=== PATIENT | female | born 1985 | race Two or more races ===

== ENCOUNTER 2016-11-05 11:31 | Emergency (ER) | payer OTHER ==
[2016-11-05 11:37] VITALS: TEMP 97.8; BMI 25.9
[2016-11-05] MEDS ORDERED: morphine CARPU-JECT 4 MG/1 ML DISP.SYRIN IVPUSH ONE (12:31)
--- NOTE | 2016-11-05 12:31 | PDOC ---
History of Present Illness - General History Source: Patient Exam Limitations: No Limitations - History of Present Illness Initial Comments: 11/05/16 12:32 The patient is a 30 year old female, with no significant past medical history and who is bulgarian speaking who was BIBA and presents to the emergency department with abdominal pain since 5am today. She reports waking up with acute sudden onset of pain. She describes the pain as a pressure, that she reports is constant but intermittent. She ranks her pain a 8/10 in pain intensity. She reports having mild nausea. She denies having this pain in the past. Patient reports having a recent last month, and is currently breast feeding. She reports having an infection at one of the suture sites, but that is not where her pain is coming from. She denies recent fevers, chills, headache or dizziness. She denies recent vomit, diarrhea or constipation. She denies recent dysuria, frequency, urgency or hematuria. 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 Allergies: NKA Past surgical history: (10/04/16) Social history: Nonsmoker. Denies EtOH use and drug use. PCP: <Enrico Mckenzie - Last Filed: 11/05/16 12:32> - General History Source: Patient Exam Limitations: No Limitations <Gabriella Zhang - Last Filed: 11/06/16 19:33> - General Chief Complaint: Pain Stated Complaint: ABD PAIN Time Seen by Provider: 11/05/16 12:01 Past History <Enrico Mckenzie - Last Filed: 11/05/16 12:32> - Psycho/Social/Smoking Cessation Hx Suicidal Ideation: No Smoking History: Never smoked Information on smoking cessation initiated: No <Gabriella Zhang - Last Filed: 11/06/16 19:33> - Past Medical History Allergies/Adverse Reactions: Allergies Allergy/AdvReac Type Severity Reaction Status Date / Time No Known Allergies Allergy Verified 11/05/16 11:37 Home Medications: Ambulatory Orders NK [No Known Home Medication] 11/05/16 Review of Systems - Review of Systems Able to Perform ROS?: Yes Comments:: 11/05/16 12:33 GENERAL/CONSTITUTIONAL: No: fever, chills, weakness, loss of appetite. HEAD, EYES, EARS, NOSE AND THROAT: No: change in vision, ear pain, discharge, sore throat, throat swelling. CARDIOVASCULAR: No: chest pain, lightheadedness, palpitations, syncope RESPIRATORY: No: cough, shortness of breath, wheezing, hemoptysis, stridor. GASTROINTESTINAL: +abd pain, nausea. No: vomiting, diarrhea, rectal bleeding, constipation. GENITOURINARY: No: dysuria, hematuria, frequency, urgency, flank pain. MUSCULOSKELETAL: No: back pain, neck pain, joint pain, muscle swelling or pain SKIN : No: lesions, pallor, rash or easy bruising. NEUROLOGIC: No: headache, vertigo, paresthesias, weakness ENDOCRINE: No: unexplained weight gain or loss HEMATOLOGIC/LYMPHATIC: No: anemia, easy bleeding, swelling nodes. <Enrico Mckenzie - Last Filed: 11/05/16 12:32> *Physical Exam - Vital Signs Last Vital Signs Temp Pulse Resp BP Pulse Ox 97.8 F 86 18 128/80 100 11/05/16 11:33 11/05/16 11:33 11/05/16 11:33 11/05/16 11:33 11/05/16 11:33 - Physical Exam Comments: 11/05/16 12:33 GENERAL: The patient is tearful on examination and appears uncomfortable. HEAD: Normal with no signs of trauma. EYES: PERRLA, EOMI, sclera anicteric, conjunctiva clear. ENT: Ears normal, nares patent, oropharynx clear without exudates. Moist mucous membranes. NECK: Normal range of motion, supple without lymphadenopathy, JVD, or masses. LUNGS: Breath sounds equal, clear to auscultation bilaterally. No wheezes, and no crackles. HEART: Regular rate and rhythm, normal S1 and S2 without murmur, rub or gallop. ABDOMEN: LUQ tenderness. Soft, normoactive bowel sounds. No guarding, no rebound. No masses palpable. EXTREMITIES: Normal range of motion, no edema. No clubbing or cyanosis. No erythema, or tenderness. NEUROLOGICAL: Cranial nerves II through XII grossly intact. Normal speech. No focal neurological deficits. MUSCULOSKELETAL: Back non-tender to palpation, no CVA tenderness SKIN: Warm, Dry, normal turgor, no rashes or lesions noted. <Enrico Mckenzie - Last Filed: 11/05/16 12:32> - Vital Signs Last Vital Signs Temp Pulse Resp BP Pulse Ox 97.8 F 86 18 128/80 100 11/05/16 11:33 11/05/16 11:33 11/05/16 11:33 11/05/16 11:33 11/05/16 11:33 <Gabriella Zhang - Last Filed: 11/06/16 19:33> ED Treatment Course - LABORATORY CBC & Chemistry Diagram: 11/05/16 12:20 11/05/16 12:20 <Gabriella Zhang - Last Filed: 11/06/16 19:33> Medical Decision Making - Medical Decision Making 11/05/16 12:31 A portion of this note was documented by scribe services under my direction. I have reviewed the details of the note, within reason, and agree with the documentation with the following case summary and management plan written by me. Nursing documentation reviewed and incorporated into medical decision making 11/05/16 17:35 This is a 30 yo email who is one week status post section who presents emergency department with a complaint of severe abdominal pain. Patient states she awoke this morning at 5 AM with severe upper abdominal pain, no prior episodes like this. She describes pain as sharp, unable to rate pain. Patient is intermittently screaming during examination. Patient has nausea, has not vomited. No diarrhea. Patient denies any lower abdominal pain. Patient states she had a postoperative wound infection, but states she has no pain at her section site. Patient states pain awoke her from sleep, not associated with eating. On examination: LUQ and epigastric tenderness to palpation No lower abd tenderness Right lower abd incision, mild drainage No surrounding erythema Pt requsting pain medication I have explained to her that taking narcotic pain mediations will necessitate pumping and dumping breast milk for 24hours Pt understands this 11/05/16 17:37 Laboratory Tests 11/05/16 11/05/16 11/05/16 12:20 12:20 14:40 WBC 10.2 H Hgb 13.9 Hct 41.2 Plt Count 204 Neutrophils % 75.7 Lymphocytes % 17.7 BUN 4 L Creatinine 0.7 Urine Blood 2+ H Urine Nitrite Negative Ur Leukocyte Esterase Negative Urine RBC 3 Urine WBC 1 US: Pelvic US -uterine enlargement, endometrial stripe RUQ US - no biliary pathology CT abd and pelvis - trace free fluid in pelvis Upon re assessment, pt states she feels better Will Discharge to home Pt is now pumping and will discard Child was put on formula Clinical impression: abdominal pain, gastritis I discussed the physical exam findings, ancillary test results and final diagnoses with the patient. I answered all of the patient's questions. The patient was satisfied with the care received and felt comfortable with the discharge plan and treatment plan. The patient will call their primary care physician within 24 hours to arrange follow-up and will return to the Emergency Department with any new, persistent or worsening symptoms. <Gabriella Zhang - Last Filed: 11/06/16 19:33> *DC/Admit/Observation/Transfer - Attestations Scribe Attestion: 11/05/16 12:33 Documentation prepared by Enrico Mckenzie, acting as medical billing associate for Gabriella Zhang MD. <Enrico Mckenzie - Last Filed: 11/05/16 12:32> - Discharge Dispostion Admit: No <Gabriella Zhang - Last Filed: 11/06/16 19:33> Diagnosis at time of Disposition: Gastritis Abdominal pain Qualifiers: Abdominal location: left upper quadrant Qualified Code(s): R10.12 - Left upper quadrant pain - Discharge Dispostion Disposition: HOME Condition at time of disposition: Improved - Referrals Referrals: Josiane Dinh [Primary Care Provider] - - Patient Instructions Printed Discharge Instructions: DI for Abdominal Pain-Adult Additional Instructions: Skylar Thank you for coming in to the ER today Your studies were negative 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
[2016-11-05] MEDS ORDERED: FAMOTIDINE 20 MG/50 ML IVPB 50 ML IVPB ONE ×2 (12:32→12:34)
[2016-11-05] MEDS ORDERED: ONDANSETRON 4 MG/2 ML VIAL IVPB ONE (12:32)
[2016-11-05 12:33] LABS: BASOPHIL 0.4 % (0-2.0); MCH 30.1 pg (25.7-33.7); MCHC 33.6 g/dl (32.0-36.0); MEAN CELL VOLUME 89.4 fl (80-96); MEAN PLT VOLUME 8.7 fl (7.5-11.1); NEUTROPHILS 75.7 % (42.8-82.8); PLATELET COUNT 204 K/MM3 (134-434); RDW 13.7 % (11.6-15.6); WHITE BLOOD COUNT 10.2 K/mm3 (4.0-10.0)
[2016-11-05] MEDS ORDERED: ONDANSETRON 4 MG/2 ML VIAL ONE (12:34)
[2016-11-05] MEDS ORDERED: morphine CARPU-JECT 4 MG/1 ML DISP.SYRIN ONE (12:34)
[2016-11-05 12:55] LABS: ALBUMIN 3.7 g/dl (3.4-5.0); ALK PHOS 133 U/L (45-117); ANION GAP 11 (8-16); BILIRUBIN,TOTAL 0.5 mg/dL (0.2-1.0); CALCIUM 9.8 mg/dL (8.5-10.1); CO2 24 mmol/L (21-32); CREATININE 0.7 mg/dL (0.55-1.02); GLUCOSE,RANDOM 101 mg/dL (74-106); SGOT/AST 34 U/L (15-37); SGPT/ALT 48 U/L (12-78); TOT PROT 7.2 g/dl (6.4-8.2)
[2016-11-05 13:41] LABS: AMYLASE 46 U/L (25-115)
[2016-11-05 15:07] LABS: URINE APPEARANCE CLEAR; URINE BILIRUBIN NEGATIVE (NEGATIVE); URINE COLOR STRAW; URINE GLUCOSE (UA) NEGATIVE (NEGATIVE); URINE KETONE TRACE (NEGATIVE); URINE LEUK ESTERASE NEGATIVE (NEGATIVE); URINE NITRITE NEGATIVE (NEGATIVE); URINE PROTEIN NEGATIVE (NEGATIVE); URINE UROBILINOGEN NEGATIVE E.U./dl (0.2-1.0)
[2016-11-05 15:43] LABS: URINE BLOOD 2+ (NEGATIVE)
[2016-11-05 15:52] LABS: URINE MUCUS RARE; URINE RBC 3 /hpf (0-3); URINE WBC 1 /hpf (3-5)
[2016-11-05 18:05] VITALS: BP 107/70; PULSE 87
== END 2016-11-05 18:05 | disposition home or self-care (01) ==
LOC: JER 11:31
PROC: 3E033GC Introduction of Other Therapeutic Substance into Peripheral Vein, Percutaneous Approach (ICD-10-PCS; principal; 2016-11-05)
PROC: 3E033NZ Introduction of Analgesics, Hypnotics, Sedatives into Peripheral Vein, Percutaneous Approach (ICD-10-PCS; 2016-11-05)
PROC: 3E033GC Introduction of Other Therapeutic Substance into Peripheral Vein, Percutaneous Approach (ICD-10-PCS; 2016-11-05)
DX: O99.63 Diseases of the digestive system complicating the puerperium (principal); K29.60 Other gastritis without bleeding
CPT/HCPCS: 36415; 74176-TC; 76705-TC; 76856-TC; 80053; 81003; 81015; 82150; 83690; 84703; 85025; 87086; 96365; 96375; 99283-25

== ENCOUNTER 2019-04-22 19:39 | Emergency (ER) | payer OTHER ==
[2019-04-22 19:57] VITALS: BP 130/86; PULSE 117; BMI 25.6
[2019-04-22] MEDS ORDERED: KETOROLAC TROMETHAMINE 30 MG/1 ML VIAL ONE (20:16)
[2019-04-22] MEDS ORDERED: KETOROLAC TROMETHAMINE 30 MG/1 ML VIAL IM ONE (20:16)
--- NOTE | 2019-04-22 20:28 | PDOC ---
History of Present Illness - General Chief Complaint: Ear Problem Stated Complaint: EAR PAIN/HEADACHE Time Seen by Provider: 04/22/19 20:03 History Source: Patient Exam Limitations: No Limitations - History of Present Illness Initial Comments: 04/22/19 20:20 33 year old female with medical history of asthma and keraticinus with left corneal transplant presents with pain in both ear 2 days. Patient reports ears are painful to touch and pain is causing pressure in head. Reports no recent swimming. STates had the same in the past and prescribed cortisporin, used it only today. Also reports fever and chills, and has iud in place. 04/22/19 20:28 Timing/Duration: other (2 days) Modifying Factors: improves with: medication Associated Symptoms: reports: fever/chills, headaches Aspirin Received prior to arrival: Yes: no aspirin today Asa Contraindications(Core Measure): No: Allergy Beta Yair Contraindications(Core Measure): Yes: Not Prescribed Beta Yair Given by EMS(Core Measure): No Beta Yair Taken at Home(Core Measure): No Beta Yair Not Indicated at this Time(Core Measure): No Past History - Travel Traveled outside of the country in the last 30 days: No Close contact w/someone who was outside of country & ill: No - Past Medical History Allergies/Adverse Reactions: Allergies Allergy/AdvReac Type Severity Reaction Status Date / Time No Known Allergies Allergy Verified 04/22/19 19:56 Home Medications: Ambulatory Orders Amox-Tr/K Cl [Augmentin - 875Mg Tablet] 1 tab PO BID #14 tablet 04/22/19 Ibuprofen 600 mg PO TID #20 tablet 04/22/19 COPD: No - Suicide/Smoking/Psychosocial Hx Smoking History: Never smoked Have you smoked in the past 12 months: No Information on smoking cessation initiated: No Hx Alcohol Use: No Drug/Substance Use Hx: No Review of Systems - Review of Systems Able to Perform ROS?: Yes Is the patient limited Macedonian proficient: No Constitutional: Yes: Chills, Fever HEENTM: Yes: Ear Pain. No: Nose Congestion, Throat Pain, Throat Swelling, Mouth Swelling Respiratory: No: Orthopnea, Shortness of Breath, SOB at Rest, Stridor, Productive cough Cardiac (ROS): No: Chest Pain, Lightheadedness, Palpitations ABD/GI: No: Constipated, Diarrhea, Poor Appetite : No: Discharge, Incontinence Musculoskeletal: No: Back Pain, Gout Neurological: Yes: Headache. No: Numbness, Paresthesia, Weakness Psychiatric: No: Stressors *Physical Exam - Vital Signs Last Vital Signs Temp Pulse Resp BP Pulse Ox 101.6 F H 117 H 18 130/86 100 04/22/19 19:53 04/22/19 19:53 04/22/19 19:53 04/22/19 19:53 04/22/19 19:53 - Physical Exam General Appearance: Yes: Nourished, Appropriately Dressed HEENT: positive: Pharynx Normal, Other (+bilateral tragus pain and unable to visualize tms due to swelling of canal. 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 otitis externa analgesia antipyretic Placed drops that patient had previously prescribed in ear 04/22/19 21:49 temperature down to 99 bilateral otitis externa rx: augmentin encouraged to continue using ear drops as previously prescribed rx: ibuprofen *DC/Admit/Observation/Transfer Diagnosis at time of Disposition: Otitis externa Qualifiers: Otitis externa type: unspecified type Chronicity: acute Laterality: bilateral Qualified Code(s): H60.503 - Unspecified acute noninfective otitis externa, bilateral - Discharge Dispostion Disposition: HOME Condition at time of disposition: Good Decision to Admit order: No - Prescriptions Prescriptions: Amox-Tr/K Cl [Augmentin - 875Mg Tablet] 1 tab PO BID #14 tablet Ibuprofen 600 mg PO TID #20 tablet - Referrals Referrals: Eliezer Duenas MD [Primary Care Provider] - - Patient Instructions Printed Discharge Instructions: DI for Otitis Externa Additional Instructions: Please do not get water in ears Take medication as prescribed Use ibuprofen for fever and pain Use ear drops as previously directed and how was shown today Return to the nearest emergency room for loss of hearing or worsening pain - Post Discharge Activity Forms/Work/School Notes: Back to Work
[2019-04-22] MEDS ORDERED: ACETAMINOPHEN 500 MG TABLET (FP) PO ONE (20:56)
[2019-04-22] MEDS ORDERED: ACETAMINOPHEN 500 MG TABLET (FP) ONE (20:57)
[2019-04-22 21:52] VITALS: TEMP 99.5
== END 2019-04-22 22:10 | disposition home or self-care (01) ==
LOC: JER 19:39
PROC: 3E0233Z Introduction of Anti-inflammatory into Muscle, Percutaneous Approach (ICD-10-PCS; principal; 2019-04-22)
DX: H60.503 Unspecified acute noninfective otitis externa, bilateral (principal)
CPT/HCPCS: 99282-25

== ENCOUNTER 2020-12-31 09:34 | Emergency (ER) | payer OTHER ==
[2020-12-31 09:39] VITALS: BP 124/78; PULSE 103; TEMP 98.7; BMI 27.4
== END 2020-12-31 10:09 | disposition home or self-care (01) ==
LOC: JER 09:34
DX: H60.503 Unspecified acute noninfective otitis externa, bilateral (principal)
CPT/HCPCS: 99282-25

== ENCOUNTER 2021-08-23 09:08 | Emergency (ER) | payer OTHER ==
[2021-08-23 09:44] VITALS: BP 112/83; PULSE 89; TEMP 97.8; BMI 25.3
[2021-08-23] MEDS ORDERED: ONDANSETRON 4 MG TABLET PO ONE (10:50)
[2021-08-23] MEDS ORDERED: SODIUM CHLORIDE 0.9% 500 ML INFUS.BAG IV ONE (10:50)
== END 2021-08-23 11:51 | disposition home or self-care (01) ==
LOC: JER 09:08
DX: K52.9 Noninfective gastroenteritis and colitis, unspecified (principal)
CPT/HCPCS: 87804; 99284-25; C9803; U0003; U0005

== ENCOUNTER 2023-03-03 03:41 | Emergency (ER) | payer OTHER ==
[2023-03-03 03:50] VITALS: BP 115/79; PULSE 89; RESP 20; TEMP 98.2; BMI 27.3
[2023-03-03] MEDS ORDERED: ALBUTEROL SO4 2.5/IPRATROPIUM 0.5 INH SOL 3 ML VIAL.NEB. NEB ONE ×3 (03:53→04:25)
[2023-03-03] MEDS ORDERED: DEXAMETHASONE SOD PHOSPHATE 10 MG/1 ML VIAL IM ONE (04:17)
[2023-03-03] MEDS ORDERED: DEXAMETHASONE SOD PHOSPHATE 10 MG/1 ML VIAL ONE (04:25)
== END 2023-03-03 05:55 | disposition home or self-care (01) ==
LOC: JER 03:41
PROC: 3E023GC Introduction of Other Therapeutic Substance into Muscle, Percutaneous Approach (ICD-10-PCS; principal; 2023-03-03)
PROC: 3E0F7GC Introduction of Other Therapeutic Substance into Respiratory Tract, Via Natural or Artificial Opening (ICD-10-PCS; 2023-03-03)
DX: J45.901 Unspecified asthma with (acute) exacerbation (principal); R06.02 Shortness of breath; R05.9 Cough, unspecified
CPT/HCPCS: 71045-TC-FY; 99284-25; J1100